=== PATIENT | female | born 2000 | race Hispanic/Latino ===

== ENCOUNTER 2019-03-12 19:46 | Emergency (ER) | payer OTHER, SELFPAY ==
--- NOTE | 2019-03-12 20:27 | RAD REPORT ---
EXAM DESCRIPTION: Ashleigh Single View03/12/2019 8:20 pm CLINICAL HISTORY: Chest pain COMPARISON: none FINDINGS: The lungs appear clear of acute infiltrate. The heart is normal size IMPRESSION: No acute abnormalities displayed
[2019-03-12 20:57] LABS: Urine Blood NEGATIVE (NEG); Urine Glucose NEGATIVE (NEG); Urine Protein 1+ (NEG); Urine Specific Gravity 1.025 (1.005-1.030)
[2019-03-12 21:05] LABS: ALT/SGPT 15 U/L (12-78); AST/SGOT 14 U/L (15-37); Albumin 4.5 g/dL (3.4-5.0); Alkaline Phosphatase 60 U/L (45-117); BUN Blood Urea Nitrogen 14 mg/dL (7-18); Bicarbonate 24 mmol/L (21-32); Bilirubin Direct 0.2 mg/dL (0-0.2); Bilirubin Total 0.5 mg/dL (0.2-1.0); Glucose Level 90 mg/dL (74-106); Magnesium 2.3 mg/dL (1.8-2.4); NT PRO-BNP 18 pg/mL (<125); Potassium 3.6 mmol/L (3.5-5.1); Sodium Level 139 mmol/L (136-145); Troponin (Emerg Dept Use Only) < 0.02 ng/mL (0.0-0.045)
[2019-03-12 21:09] LABS: Absolute Lymphocytes (CBC) 1.6 K/uL (0.7-4.9); Basophils % 0.4 % (0-1.3); Hematocrit 36.1 % (36.0-45.0); Lymphocytes % 26.4 % (15.3-44.8); MPV 9.1 fL (7.6-11.3); RBC Red Blood Cell Count 4.35 M/uL (3.86-4.86)
[2019-03-12 21:42] LABS: Protime INR 1.1
--- NOTE | 2019-03-12 23:14 | EDPHYS ---
Physician Documentation [facility] Name: Trina Helton Age: 18 yrs Sex: Female : 2000 Arrival Date: 03/12/2019 Time: 19:47 Bed 27 Private MD: ED Physician Nick Foster HPI: 03/12 20:03 This 18 yrs old Female presents to ER via Ambulatory with complaints of Chest jmm Pain. 20:03 The patient or guardian reports chest pain that is located primarily in the substernal [facility] area. The pain does not radiate. Associated signs and symptoms: Pertinent positives: shortness of breath. The chest pain is described as a pressure, sharp. Duration: The patient or guardian reports a single episode, that lasted 5 minute(s). Modifying factors: the symptoms are aggravated by deep breath. This is a 18 year old female with no chronic medical conditions that presents to the ED with complaints of chest pain which began 2 weeks. Most recent episode occurred today while at work. Patient described the pain as tight and sharp. Pain does not radiate. Patient still complains of mild pain with shortness of breath. 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 - Social history:: Smoking status: Patient/guardian denies using tobacco. - Ebola Screening: : No symptoms or risks identified at this time. ROS: 20:03 Constitutional: Negative for fever, chills, and weight loss. jmm 20:03 Cardiovascular: Positive for chest pain. 20:03 Respiratory: Positive for shortness of breath. 20:03 All other systems are negative. Exam: 20:03 Constitutional: This is a well developed, well nourished patient who is awake, alert, jmm and in no acute distress. Head/Face: atraumatic. Eyes: EOMI, no conjunctival erythema appreciated ENT: Moist Mucus Membranes Neck: Trachea midline, Supple 20:03 Back: Normal ROM Skin: General appearance color normal MS/ Extremity: Moves all extremities, no obvious deformities appreciated, no edema noted to the lower extremities Neuro: Awake and alert, normal gait Psych: Behavior is normal, Mood is normal, Patient is cooperative and pleasant 20:03 Chest/axilla: Palpation: tenderness, that is mild, that partially reproduces the patient's complaints. 20:03 Cardiovascular: Rate: normal, Rhythm: regular. 20:03 Respiratory: the patient does not display signs of respiratory distress, Respirations: normal, Breath sounds: are clear throughout. 20:03 Abdomen/GI: Inspection: abdomen appears normal, Bowel sounds: normal, Palpation: soft, in all quadrants. Vital Signs: 20:07 BP 118 / 67; Pulse 106; Resp 18; Temp 98.1; Pulse Ox 100% on R/A; Weight 55.34 kg; ea Height 5 ft. 1 in. (154.94 cm); 21:00 BP 117 / 69; Pulse 91; Resp 17; Pulse Ox 100% on R/A; rv 22:00 BP 115 / 68; Pulse 82; Resp 16; Pulse Ox 100% on R/A; rv 23:00 BP 120 / 62; Pulse 82; Resp 17; Pulse Ox 100% on R/A; rv 23:15 BP 116 / 89; Pulse 77; Resp 17; Temp 98(O); Pulse Ox 100% ; rv 20:07 Body Mass Index 23.05 (55.34 kg, 154.94 cm) ea MDM: 20:25 Patient medically screened. [facility] 23:12 Data reviewed: vital signs, nurses notes, lab test result(s), EKG, radiologic studies, [facility] CT scan, plain films. ED course: Imaging studies negative. EKG and troponin negative for ACS. Patient is advised to follow up with pcp and otherwise given strict return precautions. patient understood and agrees with the plan of care. . 03/12 20:03 Order name: Basic Metabolic Panel; Complete Time: 21:18 tw4 03/12 20:03 Order name: CBC with Diff; Complete Time: 21:18 tw4 03/12 20:03 Order name: LFT's; Complete Time: 21:18 tw4 03/12 20:03 Order name: Magnesium; Complete Time: 21:18 tw4 03/12 20:03 Order name: NT PRO-BNP; Complete Time: 21:18 tw4 03/12 20:03 Order name: PT-INR; Complete Time: 22:20 [facility] 03/12 20:03 Order name: Troponin (emerg Dept Use Only); Complete Time: 21:18 [facility] 03/12 20:03 Order name: XRAY Chest (1 view); Complete Time: 20:37 [facility] 03/12 20:03 Order name: EKG; Complete Time: 20:04 [facility] 03/12 20:18 Order name: Urine Dipstick--Ancillary (enter results); Complete Time: 21:18 [facility] 03/12 20:18 Order name: Urine --Ancillary (enter results); Complete Time: 21:18 [facility] 03/12 20:55 Order name: D-Dimer; Complete Time: 22:20 [facility] 03/12 21:58 Order name: CT Chest For PE Angio [facility] 03/12 20:03 Order name: Cardiac monitoring; Complete Time: 20:31 [facility] 03/12 20:03 Order name: EKG - Nurse/Tech; Complete Time: 20:31 [facility] 03/12 20:03 Order name: IV Saline Lock; Complete Time: 20:32 [facility] 03/12 20:03 Order name: Labs collected and sent; Complete Time: 20:32 [facility] 03/12 20:03 Order name: O2 Per Protocol; Complete Time: 20:32 [facility] 03/12 20:03 Order name: O2 Sat Monitoring; Complete Time: 20:32 tw4 Administered Medications: No medications were administered Disposition: 03/12/19 23:14 Discharged to Home. Impression: Chest pain, unspecified. - Condition is Stable. - Discharge Instructions: Nonspecific Chest Pain. - Work release form, Medication Reconciliation Form, Thank You Letter, Antibiotic Education, Prescription Opioid Use form. - Follow up: Private Physician; When: 2 - 3 days; Reason: Recheck today's complaints, Continuance of care, Re-evaluation by your physician. Addendum: 03/15/2019 21:57 Co-signature as Attending Physician, Nick Foster MD I agree with the assessment and t w4 plan of care. Signatures: Dispatcher [employer] EDMS Amilcar Mclean PA PA jmm Antunez, Elena, Nick Devine RN, ea, MD MD tw4 Neal Castle RN RN rv Corrections: (The following items were deleted from the chart) 03/12 20:54 20:38 D-DIMER+COAG.LAB.BRZ ordered. EDMS EDMS 23:27 23:14 03/12/2019 23:14 Discharged to Home. Impression: Chest pain, unspecified. rv Condition is Stable. Forms are Medication Reconciliation Form, Thank You Letter, Antibiotic Education, Prescription Opioid Use. Follow up: Private Physician; When: 2 - 3 days; Reason: Recheck today's complaints, Continuance of care, Re-evaluation by your physician. bridgette
--- NOTE | 2019-03-12 23:14 | ER ---
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 Pt states "my apple watch said 98 heart rate, which is high for me" Pt reports she was also short of breath. Transition of care: patient was not received from another setting of care. Onset of symptoms was March 12, 2019. Risk Assessment: Do you want to hurt yourself or someone else? Patient reports no desire to harm self or others. Initial Sepsis Screen: Does the patient meet any 2 criteria? HR > 90 bpm. Does the patient have a suspected source of infection? No. Patient's initial sepsis screen is negative. Care prior to arrival: None. 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 - Social history:: Smoking status: Patient/guardian denies using tobacco. - Ebola Screening: : No symptoms or risks identified at this time. Screenin:18 Abuse screen: Denies threats or abuse. Denies injuries from another. Nutritional rv screening: No deficits noted. Tuberculosis screening: No symptoms or risk factors identified. Fall Risk None identified. Assessment: 20:16 General: Appears in no apparent distress. comfortable, Behavior is calm, cooperative. rv Pain: Complains of pain in chest Pain does not radiate. Pain began suddenly. Neuro: Level of Consciousness is awake, alert, obeys commands, Oriented to person, place, time, situation. Cardiovascular: Patient's skin is warm and dry. Respiratory: Airway is patent. GI: No signs and/or symptoms were reported involving the gastrointestinal system. : No signs and/or symptoms were reported regarding the genitourinary system. EENT: No signs and/or symptoms were reported regarding the EENT system. Derm: Skin is intact. 21:58 Reassessment: Patient appears in no apparent distress at this time. No changes from rv previously documented assessment. Patient and/or family updated on plan of care and expected duration. Pain level reassessed. patient still have the chest discomfort. D-dimer result relayed to ALYCIA Fitzgerald. plan to do a CTPE. Vital Signs: 20:07 BP 118 / 67; Pulse 106; Resp 18; Temp 98.1; Pulse Ox 100% on R/A; Weight 55.34 kg; ea Height 5 ft. 1 in. (154.94 cm); 21:00 BP 117 / 69; Pulse 91; Resp 17; Pulse Ox 100% on R/A; rv 22:00 BP 115 / 68; Pulse 82; Resp 16; Pulse Ox 100% on R/A; rv 23:00 BP 120 / 62; Pulse 82; Resp 17; Pulse Ox 100% on R/A; rv 23:15 BP 116 / 89; Pulse 77; Resp 17; Temp 98(O); Pulse Ox 100% ; rv 20:07 Body Mass Index 23.05 (55.34 kg, 154.94 cm) ea ED Course: 19:47 Patient arrived in ED. ds1 19:59 Neal Castle, NAHOMY is Primary Nurse. rv 20:03 Amilcar Mclean PA is PHCP. [facility] 20:03 Nick Foster MD is Attending Physician. [facility] 20:06 Triage completed. ea 20:06 Patient has correct armband on for positive identification. potline monitor on. Pulse ea ox on. NIBP on. 20:06 Arm band placed on right wrist. Patient placed in an exam room, on a stretcher, on ea pulse oximetry. 20:18 Patient maintains SpO2 saturation greater than 95% on room air. rv 20:21 XRAY Chest (1 view) In Process Unspecified. EDMS 20:31 Initial lab(s) drawn, by me, sent to lab. Inserted saline lock: 22 gauge in right lt1 antecubital area, using aseptic technique. 22:31 CT Chest For PE Angio In Process Unspecified. EDMS 23:27 No provider procedures requiring assistance completed. IV discontinued, intact, rv bleeding controlled, No redness/swelling at site. Pressure dressing applied. Administered Medications: No medications were administered Outcome: 23:14 Discharge ordered by . bridgette 23:27 Discharged to home ambulatory, with family. rv 23:27 Condition: good 23:27 Discharge instructions given to patient, Instructed on discharge instructions, follow up and referral plans. Demonstrated understanding of instructions, follow-up care. 23:27 Patient left the ED. rv Signatures: Dispatcher [employer] EDMS Amilcar Mclean PA PA jmm Sanford, Demi ds1 Rajni Latif, RN RN Neal Betancourt, RN RN Helen Thomas 1
[2019-03-13 00:32] VITALS: O2SAT 100
--- NOTE | 2019-03-13 08:09 | EKG ---
Test Date: 2019-03-12 Test Time: 20:14:21 Clam Picker: RAFAT MEASUREMENT RESULTS: Intervals: Rate: 109 VA: 148 QRSD: 80 QT: 342 QTc: 460 [place]: P: 74 VA: 148 QRS: 76 T: 58 INTERPRETIVE STATEMENTS: Sinus tachycardia Otherwise normal ECG No previous ECG available for comparison Electronically Signed On 03-13-19 08:09:12 LOAN EXAMINER by Harry Mcdonald
[2019-03-13 11:55] VITALS: BP 116/89; TEMP 98
--- NOTE | 2019-03-15 13:26 | RAD REPORT ---
EXAM DESCRIPTION: Chest For Pe Angio CLINICAL HISTORY: Chest pain TECHNIQUE: Chest CTA. 2.0 mm reconstructed axial images were obtained. Coronal and sagittal reformat brigida images were obtained. Coronal and sagittal MIP images were obtained. DOSE OPTIMIZATION: This facility uses dose optimization techniques as appropriate to perform exams, including at least one of the following techniques: 1. Automated exposure control. 2. Adjustment of the mA and/or kV according to patient size (this includes techniques or standardized protocols for targeted exams where dose is matched to the indication/reason for exam, i.e. extremiti es or head). 3. Use of iterative reconstructive technique. INTRAVENOUS CONTRAST: Not documented. Please refer to medical record. COMPARISON: None. FINDINGS: Lung Restrepo: Normal. Mediastinal Structures: No aortic dissection. No pericardial effusion. No adenopathy. Pulmonary Arteries: Normal. Pleural Space: Normal. Axillae: No adenopathy. Upper Abdomen: Normal. Bony Structures: No suspicious lesions. IMPRESSION: 1. Normal study. Electronically signed by: Chaim Saldivar MD 03/12/2019 10:49 PM ART MODEL Due to temporary technical issues with the PACS/Fluency reporting system, reports are being signed by the in house radiologist as a courtesy to ensure prompt reporting. The interpreting radiologist is f ully responsible for the content of the report.
== END 2019-03-12 23:27 | disposition home or self-care (01) ==
LOC: ER 19:46
DX: R07.9 Chest pain, unspecified (principal)
CPT/HCPCS: 36415; 71045; 71275; 80048; 80076; 81003; 81025; 83735; 83880; 84484; 85025; 85379; 85610; 93005; 99285; Q9967

== ENCOUNTER 2019-06-26 11:58 | Emergency (ER) | payer SELFPAY ==
[2019-06-26] MEDS ORDERED: NA CHLORIDE 0.9% 1,000 ML ONE ×2 (12:35→13:51)
[2019-06-26 12:54] LABS: Absolute Lymphocytes (CBC) 0.1 K/uL (0.7-4.9); Basophils % 0.2 % (0-1.3); Hematocrit 35.2 % (36.0-45.0); MPV 8.8 fL (7.6-11.3); RBC Red Blood Cell Count 4.38 M/uL (3.86-4.86)
[2019-06-26 13:07] LABS: Bilirubin Direct 0.2 mg/dL (0-0.2); Bilirubin Total 0.6 mg/dL (0.2-1.0); Protein, Total 7.5 g/dL (6.4-8.2)
[2019-06-26 13:20] LABS: Blood Morphology Comment NOT SEEN (NOT SEEN); Platelet Estimate ADEQ; White Blood Cell Scan OK
--- NOTE | 2019-06-26 13:29 | EDPHYS ---
Physician Documentation [facility] Name: Trina Helton Age: 19 yrs Sex: Female : 2000 Arrival Date: 06/26/2019 Time: 12:01 Bed 4 Private MD: ED Physician Jim Parry HPI: 13:22 This 19 yrs old Female presents to ER via EMS with complaints of darius Nausea/Vomiting. 13:22 The patient presents to the emergency department with nausea, vomiting, diarrhea. darius Onset: The symptoms/episode began/occurred this morning, today. Possible causes: unknown. The symptoms are aggravated by nothing. The symptoms are alleviated by nothing. Associated signs and symptoms: The patient has no apparent associated signs or symptoms. Severity of symptoms: At their worst the symptoms were mild in the emergency department the symptoms are unchanged. The patient has not experienced similar symptoms in the past. 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 - Social history:: Smoking status: Patient denies any tobacco usage or history of. - Family history:: not pertinent. ROS: 13:22 Constitutional: Negative for fever, chills, and weight loss, Eyes: Negative for injury, darius pain, redness, and discharge, ENT: Negative for injury, pain, and discharge, Neck: Negative for injury, pain, and swelling, Cardiovascular: Negative for chest pain, palpitations, and edema, Respiratory: Negative for shortness of breath, cough, wheezing, and pleuritic chest pain, Back: Negative for injury and pain, : Negative for injury, bleeding, discharge, and swelling, MS/Extremity: Negative for injury and deformity, Skin: Negative for injury, rash, and discoloration, Neuro: Negative for headache, weakness, numbness, tingling, and seizure, Psych: Negative for depression, anxiety, suicide ideation, homicidal ideation, and hallucinations, Allergy/Immunology: Negative for hives, rash, and allergies, Endocrine: Negative for neck swelling, polydipsia, polyuria, polyphagia, and marked weight changes, Hematologic/Lymphatic: Negative for swollen nodes, abnormal bleeding, and unusual bruising. 13:22 Abdomen/GI: Positive for abdominal pain, nausea and vomiting, diarrhea. Exam: 13:22 Constitutional: This is a well developed, well nourished patient who is awake, alert, darius and in no acute distress. Head/Face: Normocephalic, atraumatic. Eyes: Pupils equal round and reactive to light, extra-ocular motions intact. Lids and lashes normal. Conjunctiva and sclera are non-icteric and not injected. Cornea within normal limits. Periorbital areas with no swelling, redness, or edema. ENT: Nares patent. No nasal discharge, no septal abnormalities noted. Tympanic membranes are normal and external auditory canals are clear. Oropharynx with no redness, swelling, or masses, exudates, or evidence of obstruction, uvula midline. Mucous membranes moist. Neck: Trachea midline, no thyromegaly or masses palpated, and no cervical lymphadenopathy. Supple, full range of motion without nuchal rigidity, or vertebral point tenderness. No Meningismus. Chest/axilla: Normal chest wall appearance and motion. Nontender with no deformity. No lesions are appreciated. Cardiovascular: Regular rate and rhythm with a normal S1 and S2. No gallops, murmurs, or rubs. Normal PMI, no JVD. No pulse deficits. Respiratory: Lungs have equal breath sounds bilaterally, clear to auscultation and percussion. No rales, rhonchi or wheezes noted. No increased work of breathing, no retractions or nasal flaring. Abdomen/GI: Soft, non-tender, with normal bowel sounds. No distension or tympany. No guarding or rebound. No evidence of tenderness throughout. Back: No spinal tenderness. No costovertebral tenderness. Full range of motion. Skin: Warm, dry with normal turgor. Normal color with no rashes, no lesions, and no evidence of cellulitis. MS/ Extremity: Pulses equal, no cyanosis. Neurovascular intact. Full, normal range of motion. Neuro: Awake and alert, GCS 15, oriented to person, place, time, and situation. Cranial nerves II-XII grossly intact. Motor strength 5/5 in all extremities. Sensory grossly intact. Cerebellar exam normal. Normal gait. Psych: Awake, alert, with orientation to person, place and time. Behavior, mood, and affect are within normal limits. 13:22 Musculoskeletal/extremity: Extremities: all appear grossly normal, with no appreciated pain with palpation, ROM: no acute changes, Circulation is intact in all extremities. Sensation intact. Compartment Syndrome exam of affected extremity: is normal. Joints: All joints appear normal with full range of motion. Weight bearing: able to fully bear weight, without difficulty, DVT Exam: No signs of deep vein thrombosis. Vital Signs: 12:07 BP 95 / 51; Pulse 89; Resp 15 S; Temp 97.8(O); Pulse Ox 100% on R/A; Weight 57.61 kg jl7 (R); Height 5 ft. 1 in. (154.94 cm) (R); Pain 5/10; 12:30 BP 101 / 58; Pulse 102; Resp 15 S; Pulse Ox 100% on R/A; jl7 13:32 BP 113 / 62; Pulse 102; Resp 14 S; Pulse Ox 100% on R/A; jl7 13:38 BP 101 / 52 Supine; Pulse 90; jl7 13:40 BP 93 / 59 Standing; Pulse 123; jl7 14:24 BP 106 / 57; Pulse 88; Resp 16 S; Pulse Ox 100% on R/A; jl7 12:07 Body Mass Index 24.00 (57.61 kg, 154.94 cm) jl7 MDM: 12:03 Patient medically screened. [facility] 12:05 Order name: Basic Metabolic Panel; Complete Time: 13:18 [facility] 12:05 Order name: CBC with Diff; Complete Time: 13:33 [facility] 12:05 Order name: Creatinine for Radiology; Complete Time: 13:18 [facility] 12:05 Order name: Hepatic Function; Complete Time: 13:18 [facility] 12:05 Order name: Lipase; Complete Time: 13:18 [facility] 13:21 Order name: CBC Smear Scan; Complete Time: 13:33 [facility] 12:05 Order name: IV Saline Lock; Complete Time: 13:29 [facility] 12:05 Order name: Labs collected and sent; Complete Time: 13:29 [facility] 12:05 Order name: Urine Dipstick-Ancillary (obtain specimen); Complete Time: 13:34 [facility] 12:05 Order name: Urine Test (obtain specimen); Complete Time: 13:34 [facility] 13:36 Order name: Urine Dipstick--Ancillary (enter results) 13:36 Order name: Urine --Ancillary (enter results) 13:35 Order name: Orthostatics: if positive repeat bolus; Complete Time: 14:24 [facility] Administered Medications: 12:45 Drug: NS 0.9% 1000 ml Route: IV; Rate: 1 bolus; Site: left antecubital; jl7 13:30 Follow up: IV Status: Completed infusion; IV Intake: 1000ml jl7 13:50 Drug: NS 0.9% 1000 ml Route: IV; Rate: 1000 ml; Site: left antecubital; aa5 Disposition: 06/26/19 13:28 Discharged to Home. Impression: Vomiting, Diarrhea, unspecified. - Condition is Stable. - Discharge Instructions: Food Choices to Help Relieve Diarrhea, Adult, Diarrhea, Adult, Nausea and Vomiting, Adult, Nausea and Vomiting, Adult, [id number], Diarrhea, Adult, [id number]. - Prescriptions for Zofran 4 mg Oral Tablet - take 1 tablet by ORAL route every 12 hours As needed; 20 tablet. - Medication Reconciliation Form, Thank You Letter, Antibiotic Education, Prescription Opioid Use, Work release form form. - Follow up: Private Physician; When: 2 - 3 days; Reason: Recheck today's complaints, Continuance of care, Re-evaluation by your physician. - Problem is new. - Symptoms have improved. Signatures: Dispatcher [employer] EDIA Jim Parry MD MD cha Calderon, Audri, RN RN aa5 Ruth Gray RN RN jl7 Corrections: (The following items were deleted from the chart) 14:58 13:28 06/26/2019 13:28 Discharged to Home. Impression: Vomiting; Diarrhea, unspecified. jl7 Condition is Stable. Forms are Medication Reconciliation Form, Thank You Letter, Antibiotic Education, Prescription Opioid Use. Follow up: Private Physician; When: 2 - 3 days; Reason: Recheck today's complaints, Continuance of care, Re-evaluation by your physician. Problem is new. Symptoms have improved. [facility]
--- NOTE | 2019-06-26 13:29 | ER ---
Nurse's Notes [facility] Name: Trina Helton Age: 19 yrs Sex: Female : 2000 Arrival Date: 06/26/2019 Time: 12:01 Bed 4 Private MD: Diagnosis: Vomiting;Diarrhea, unspecified Presentation: 12:07 Chief complaint: Patient states: Abdominal cramping x 5 days, N/V/D started today, was jl7 at the clinic and reports feeling lightheaded and almost losing consciousness. Coronavirus screen: The patient has NOT traveled to [place] in the past 14 days. Proceed with normal triage procedures. Ebola Screen: No symptoms or risks identified at this time. Initial Sepsis Screen: Does the patient meet any 2 criteria? No. Patient's initial sepsis screen is negative. Does the patient have a suspected source of infection? No. Patient's initial sepsis screen is negative. Risk Assessment: Do you want to hurt yourself or someone else? Patient reports no desire to harm self or others. 12:07 Method Of Arrival: EMS: 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 - Social history:: Smoking status: Patient denies any tobacco usage or history of. - Family history:: not pertinent. Screenin:35 Abuse screen: Denies threats or abuse. Denies injuries from another. Tuberculosis ia1 screening: No symptoms or risk factors identified. 12:35 Nutritional screening: No deficits noted. Fall Risk IV access (20 points). Total Flores jl7 Fall Scale indicates No Risk (0-24 pts). Assessment: 12:35 General: Appears in no apparent distress. uncomfortable, Behavior is calm, cooperative, ia1 appropriate for age. Neuro: Level of Consciousness is awake, alert, obeys commands, Reports feeling lightheaded.. Cardiovascular: Patient's skin is warm and dry. Respiratory: Airway is patent Respiratory effort is even, unlabored, Respiratory pattern is regular, symmetrical. Derm: Skin is pale. 12:35 Pain: Complains of pain in abdomen Pain does not radiate. Pain currently is 5 out of 10 ia1 on a pain scale. GI: N/V started this morning, Diarrhea x1. Sharp pain in abdomen for a week. 13:45 Reassessment: Pt will be discharged after fluids are done infusing. jl7 14:45 Reassessment: pt ambulated approximately 75 ft, with steady gate, denies dizziness, jl7 reports feeling better. Vital Signs: 12:07 BP 95 / 51; Pulse 89; Resp 15 S; Temp 97.8(O); Pulse Ox 100% on R/A; Weight 57.61 kg jl7 (R); Height 5 ft. 1 in. (154.94 cm) (R); Pain 5/10; 12:30 BP 101 / 58; Pulse 102; Resp 15 S; Pulse Ox 100% on R/A; jl7 13:32 BP 113 / 62; Pulse 102; Resp 14 S; Pulse Ox 100% on R/A; jl7 13:38 BP 101 / 52 Supine; Pulse 90; jl7 13:40 BP 93 / 59 Standing; Pulse 123; jl7 14:24 BP 106 / 57; Pulse 88; Resp 16 S; Pulse Ox 100% on R/A; jl7 12:07 Body Mass Index 24.00 (57.61 kg, 154.94 cm) jl7 ED Course: 12:01 Patient arrived in ED. am2 12:03 Jim Parry MD is Attending Physician. [facility] 12:07 Ruth Gray RN is Primary Nurse. jl7 12:10 Triage completed. jl7 12:11 Arm band placed on right wrist. jl7 12:35 Patient has correct armband on for positive identification. Placed in gown. Bed in low jl7 position. Call light in reach. Side rails up X 1. potline monitor on. Pulse ox on. NIBP on. Warm blanket given. 12:43 Inserted saline lock: 20 gauge in left antecubital area, using aseptic technique. Blood ia1 collected. 12:43 Initial lab(s) drawn, by me, sent to lab. jl7 14:45 No provider procedures requiring assistance completed. IV discontinued, intact, jl7 bleeding controlled, No redness/swelling at site. Pressure dressing applied. Administered Medications: 12:45 Drug: NS 0.9% 1000 ml Route: IV; Rate: 1 bolus; Site: left antecubital; jl7 13:30 Follow up: IV Status: Completed infusion; IV Intake: 1000ml jl7 13:50 Drug: NS 0.9% 1000 ml Route: IV; Rate: 1000 ml; Site: left antecubital; aa5 Intake: 13:30 IV: 1000ml; Total: 1000ml. jl7 Outcome: 13:28 Discharge ordered by . darius 14:45 Discharged to home ambulatory. [facility] 14:45 Condition: stable 14:45 Discharge instructions given to patient, Instructed on discharge instructions, follow up and referral plans. medication usage, Demonstrated understanding of instructions, follow-up care, medications, Prescriptions given X 1. 14:58 Patient left the ED. jl7 Signatures: Jim Parry MD MD cha Calderon, Audri, RN RN meek5 Ruth Gray RN RN jl7 Christina Kemp Ivonne ia1 Corrections: (The following items were deleted from the chart) 12:51 12:43 Inserted saline lock: 20 gauge in left antecubital area, using aseptic technique. ia1 Blood collected. ia1
[2019-06-26 13:52] LABS: Urine Blood NEGATIVE (NEG); Urine Glucose NEGATIVE (NEG); Urine Protein TRACE (NEG); Urine pH 5.5 (5.0-7.0)
[2019-06-26 15:09] VITALS: TEMP 97.8; O2SAT 100
[2019-06-26 15:16] VITALS: BP 106/57
== END 2019-06-26 14:58 | disposition home or self-care (01) ==
LOC: ER 11:58
DX: R19.7 Diarrhea, unspecified (principal)
CPT/HCPCS: 36415; 80048; 80076; 81003; 81025; 83690; 85025; 96360; 99284; J7030

== ENCOUNTER 2021-07-15 23:57 | Emergency (ER) | payer OTHER, SELFPAY ==
[2021-07-16] MEDS ORDERED: IBUPROFEN 400 MG TAB ONE (00:58)
[2021-07-16 01:49] LABS: SARS-COV-2 RT PCR NEGATIVE (NEGATIVE)
--- NOTE | 2021-07-16 02:31 | ER ---
Nurse's Notes [facility] Name: Trina Helton Age: 21 yrs Sex: Female : 2000 Arrival Date: 07/16/2021 Time: 00:03 Bed 7 Private MD: Diagnosis: Influenza due to identified novel influenza A virus Presentation: 07/16 00:41 Chief complaint: Patient states: "My cough was hurting my chest while I was coughing. I as6 have chills and I feel weak. I checked my temperature and I have one. ". Coronavirus screen: Vaccine status: Patient reports receiving the 2nd dose of the covid vaccine. Nimesh. Ebola Screen: Patient negative for fever greater than or equal to 101.5 degrees Fahrenheit, and additional compatible Ebola Virus Disease symptoms Patient denies exposure to infectious person. Patient denies travel to an Ebola-affected area in the 21 days before illness onset. 00:41 Method Of Arrival: Ambulatory as6 00:45 Initial Sepsis Screen: Does the patient meet any 2 criteria? HR > 90 bpm. No. Patient's as6 initial sepsis screen is negative. Does the patient have a suspected source of infection? Yes: Productive cough/pneumonia. Risk Assessment: Do you want to hurt yourself or someone else? Patient reports no desire to harm self or others. Onset of symptoms was July 14, 2021. 02:43 Acuity: MARY 4 tw5 Triage Assessment: 00:47 Headache History: The patient has had previous headaches and this one is different than as6 previous episodes. General: Appears in no apparent distress. Behavior is calm, cooperative, appropriate for age. Pain: Complains of pain in chest Pain currently is 10 out of 10 on a pain scale. Pain began 2-3 days ago. Also complains of. Neuro: Level of Consciousness is awake, alert, obeys commands, Oriented to person, place, time, situation. 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 - Social history:: Smoking status: Patient reports the use of cigarette tobacco products, denies chronic smoking, but will smoke occasionally. Screenin:49 Abuse screen: Denies threats or abuse. Denies injuries from another. Nutritional as6 screening: No deficits noted. Tuberculosis screening: No symptoms or risk factors identified. Fall Risk None identified. Assessment: 00:49 Pain: Pain currently is 10 out of 10 on a pain scale. Respiratory: Airway is patent as6 Trachea midline Respiratory effort is even, unlabored. Derm: No deficits noted. Vital Signs: 00:41 Temp 100.5(O); Weight 61.23 kg; Height 5 ft. 1 in. (154.94 cm); Pain 10/10; as6 00:47 BP 123 / 58; Pulse 120; Resp 18; Pulse Ox 100% on R/A; as6 02:43 Pulse 94; Resp 18; Temp 98.9(O); Pulse Ox 100% on R/A; tw5 02:43 Temp 98.9; tw5 00:41 Body Mass Index 25.51 (61.23 kg, 154.94 cm) as6 ED Course: 00:03 Patient arrived in ED. es 00:04 Guero Benedict NP is PHCP. pm1 00:04 Srinivas Tong DO is Attending Physician. pm1 00:32 Ester Carey is Primary Nurse. tw5 00:47 Arm band placed on right wrist. as6 00:49 Patient has correct armband on for positive identification. Bed in low position. Call as6 light in reach. Adult w/ patient. Pulse ox on. NIBP on. Door closed. Moved to private room. Verbal reassurance given. 00:49 Flu and/or RSV swab sent to lab. Strep swab sent to lab. as6 00:59 COVID-19/FLU A+B Sent. as6 00:59 Strep Sent. as6 00:59 COVID-19/FLU A+B (Document "Date of Onset" if Symptomatic) Sent. as6 02:43 Triage completed. tw5 02:43 No provider procedures requiring assistance completed. Patient did not have IV access tw5 during this emergency room visit. Administered Medications: 00:59 Drug: Ibuprofen 800 mg Route: PO; as6 02:43 Follow up: Temp 98.9; Response: No adverse reaction tw5 Outcome: 02:31 Discharge ordered by . pm1 02:43 Discharged to home ambulatory. tw5 02:43 Condition: improved 02:43 Discharge instructions given to patient, Instructed on discharge instructions, follow up and referral plans. 02:43 Patient left the ED. tw5 Signatures: Megan Lindsey Patrick, NP FRONT SERVICES AGENT pm1 Ester Carey tw5 Edd Parra RN RN as6 Corrections: (The following items were deleted from the chart) 00:48 00:47 BP 123 / 158; Pulse 120bpm; Resp 18bpm; Pulse Ox 100% RA; as6 as6
--- NOTE | 2021-07-16 02:31 | EDPHYS ---
Physician Documentation [facility] Name: Trina Helton Age: 21 yrs Sex: Female : 2000 Arrival Date: 07/16/2021 Time: 00:03 Bed 7 Private MD: ED Physician Srinivas Tong HPI: 07/16 02:21 This 21 yrs old Female presents to ER via Ambulatory with complaints of Cough, pm1 Fever, body chills, Headache. 02:21 The patient or guardian reports cough, flu symptoms, Headache, body aches, chills. pm1 Onset: The symptoms/episode began/occurred today. Severity of symptoms: in the emergency department the symptoms are unchanged. Modifying factors: The symptoms are alleviated by nothing, the symptoms are aggravated by nothing. Associated signs and symptoms: Pertinent positives: chest pain, with cough, fever, Pertinent negatives: ear ache, sore throat. The patient has not experienced similar symptoms in the past. The patient has not recently seen a physician. 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 - Social history:: Smoking status: Patient reports the use of cigarette tobacco products, denies chronic smoking, but will smoke occasionally. ROS: 02:21 Eyes: Negative for injury, pain, redness, and discharge, ENT: Negative for injury, pm1 pain, and discharge, Cardiovascular: Negative for chest pain, palpitations, and edema. 02:21 Abdomen/GI: Negative for abdominal pain, nausea, vomiting, diarrhea, and constipation, Back: Negative for injury and pain, MS/Extremity: Negative for injury and deformity, Skin: Negative for injury, rash, and discoloration, Neuro: Negative for headache, weakness, numbness, tingling, and seizure. 02:21 Constitutional: Positive for body aches, chills, fever, Negative for poor PO intake. 02:21 Respiratory: Positive for cough, Negative for shortness of breath. 02:21 All other systems are negative. Exam: 02:21 Constitutional: This is a well developed, well nourished patient who is awake, alert, pm1 and in no acute distress. Head/Face: Normocephalic, atraumatic. 02:21 Back: No spinal tenderness. No costovertebral tenderness. Full range of motion. Skin: Warm, dry with normal turgor. Normal color with no rashes, no lesions, and no evidence of cellulitis. MS/ Extremity: Pulses equal, no cyanosis. Neurovascular intact. Full, normal range of motion. 02:21 Eyes: Exam is negative for acute changes, Extraocular movements: no acute changes. 02:21 ENT: Exam is negative for acute changes, Mouth: no acute changes, Lips: normal, moist, Oral mucosa: normal, pink and intact, moist. 02:21 Cardiovascular: Exam negative for acute changes, Rate: tachycardic, Rhythm: regular, Pulses: no pulse deficits are appreciated, Heart sounds: normal, normal S1and S2. 02:21 Respiratory: Exam negative for acute changes, respiratory distress, shortness of breath, Breath sounds: are clear throughout. 02:21 Abdomen/GI: Exam negative for acute changes, Inspection: Palpation: abdomen is soft and non-tender, in all quadrants. 02:21 Neuro: Exam negative for acute changes, Orientation: is normal, Mentation: is normal, Motor: is normal, moves all fours. Vital Signs: 00:41 Temp 100.5(O); Weight 61.23 kg; Height 5 ft. 1 in. (154.94 cm); Pain 10/10; as6 00:47 BP 123 / 58; Pulse 120; Resp 18; Pulse Ox 100% on R/A; as6 02:43 Pulse 94; Resp 18; Temp 98.9(O); Pulse Ox 100% on R/A; tw5 02:43 Temp 98.9; tw5 00:41 Body Mass Index 25.51 (61.23 kg, 154.94 cm) as6 MDM: 00:40 Patient medically screened. pm1 02:23 Data reviewed: vital signs. Data interpreted: Pulse oximetry: on room air is 100 %. pm1 Interpretation: normal. Counseling: I had a detailed discussion with the patient and/or guardian regarding: the historical points, exam findings, and any diagnostic results supporting the discharge/admit diagnosis, lab results, the need for outpatient follow up, to return to the emergency department if symptoms worsen or persist or if there are any questions or concerns that arise at home. 07/16 00:45 Order name: COVID-19/FLU A+B (Document "Date of Onset" if Symptomatic) as07/16 00:45 Order name: Strep; Complete Time: 03:05 as6 07/16 00:45 Order name: COVID-19/FLU A+B; Complete Time: 02:20 EDMS Administered Medications: 00:59 Drug: Ibuprofen 800 mg Route: PO; as 02:43 Follow up: Temp 98.9; Response: No adverse reaction tw5 Disposition: 05:45 Co-signature as Attending Physician, Srinivas Tong DO I agree with the assessment and ms3 plan of care. Disposition Summary: 07/16/21 02:31 Discharge Ordered Location: Home pm1 Problem: new pm1 Symptoms: have improved pm1 Condition: Stable pm1 Diagnosis - Influenza due to identified novel influenza A virus pm1 Followup: pm1 - With: Emergency Department - When: As needed - Reason: Worsening of condition Followup: pm1 - With: Private Physician - When: 2 - 3 days - Reason: Recheck today's complaints, Continuance of care, Re-evaluation by your physician Discharge Instructions: - Discharge Summary Sheet pm1 - Influenza, Adult, [id number] pm1 Forms: - Medication Reconciliation Form pm1 - Thank You Letter pm1 - Work release form pm1 - Antibiotic Education pm1 - Prescription Opioid Use pm1 Prescriptions: - Tamiflu 75 mg Oral Capsule - take 1 tablet by ORAL route every 12 hours for 5 days; 10 tablet; Refills: 0, pm1 Product Selection Permitted Signatures: Dispatcher [employer] EDMS Guero Benedict, TAMMIE PERSONAL COMPUTER NETWORK ENGINEER pm1 Srinivas Tong DO DO ms3 Edd Parra RN RN as6 Ester Carey tw5
[2021-07-16 05:18] VITALS: BP 123/58; O2SAT 100
[2021-07-16 05:20] VITALS: TEMP 98.9
== END 2021-07-16 02:43 | disposition home or self-care (01) ==
LOC: ER 23:57
DX: J10.1 Influenza due to other identified influenza virus with other respiratory manifestations (principal); Z20.822 Contact with and (suspected) exposure to COVID-19; F17.210 Nicotine dependence, cigarettes, uncomplicated
CPT/HCPCS: 87070; 87081; 0240U; 99283